=== PATIENT | male | born 1955 | race Caucasian/White ===

== ENCOUNTER 2017-02-17 03:27 | Emergency (ER) | payer MEDICARE ==
[2017-02-17] MEDS ORDERED: KETOROLAC TROMETHAMINE INJ/PF 30 MG/1 ML SDV IV ONE (04:27)
[2017-02-17] MEDS ORDERED: NORMAL SALINE 1000 ML 1,000 ML IV ONE (04:48)
--- NOTE | 2017-02-17 04:53 | ER Document Report ---
ED GI/ - General Chief Complaint: Flank Pain Stated Complaint: FLANK PAIN Time Seen by Provider: 02/17/17 04:33 Mode of Arrival: Ambulatory Information source: Patient Notes: 61-year-old male presents to ED for left flank pain that started around 1:00 this morning. States she has been nauseated with no vomiting. No diarrhea. Has a history of a kidney stone and has passed with his UA something that looks like it could be a stone. Has a history of an [place] with pacemaker defibrillator as blood pressure cholesterol thyroid and some broken bones. TRAVEL OUTSIDE OF THE [place] IN LAST 30 DAYS: No - HPI Patient complains to provider of: Flank pain - Left. No: Vomiting - Nausea no vomiting Onset: This evening Timing/Duration: Intermittent Quality of pain: Sharp Severity at maximum: Moderate Severity in ED: Moderate Pain Level: 3 Location: Left flank Associated symptoms: Nausea, Other - Left flank pain. denies: Vomiting Exacerbated by: Denies Relieved by: Denies Similar symptoms previously: Yes Recently seen / treated by doctor: No - Related Data Allergies/Adverse Reactions: No Known Drug Allergies Allergy (Mild, Verified 09/29/11 08:33) ANTIBIOTICS Allergy (Severe, Uncoded 09/29/11 09:42) adhesive gel from round ekg pads Allergy (Mild, Uncoded 08/26/11 08:17) blisters skin Past Medical History - General Information source: Patient - Social History Smoking Status: Never Smoker Cigarette use (# per day): No Chew tobacco use (# tins/day): Yes - dips a can a day Smoking Education Provided: No Frequency of alcohol use: None Drug Abuse: None Occupation: Disability Lives with: Family Family History: COPD, DM, Hyperlipidemia, Hypertension, Malignancy Patient has suicidal ideation: No Patient has homicidal ideation: No - Past Medical History Cardiac Medical History: Reports: Hx Atrial Fibrillation, Hx Coronary Artery Disease, Hx Heart Attack, Hx Hypercholesterolemia, Hx Hypertension Pulmonary Medical History: Reports: Hx Asthma EENT Medical History: Reports: None Neurological Medical History: Reports: None Endocrine Medical History: Reports: Hx Hypothyroidism Renal/ Medical History: Reports: None Malignancy Medical History: Reports None GI Medical History: Reports: None Musculoskeltal Medical History: Reports Hx Musculoskeletal Deformity, Reports Hx Musculoskeletal Trauma Skin Medical History: Reports None Psychiatric Medical History: Reports: None Traumatic Medical History: Reports: Hx Fractures Infectious Medical History: Reports: None Past Surgical History: Reports: Hx Cardiac Catheterization, Hx Cardiac Surgery - Pacer/defib, Cardiac stents, Hx Cholecystectomy, Hx Coronary Stent, Hx Orthopedic Surgery - L elbow, Hx Pacemaker - X 2 - Immunizations Hx Pneumococcal Vaccination: 07/24/11 Review of Systems - Review of Systems Constitutional: No symptoms reported EENT: No symptoms reported Cardiovascular: No symptoms reported Respiratory: No symptoms reported Gastrointestinal: Nausea. denies: Vomiting Genitourinary: Flank pain Male Genitourinary: No symptoms reported Musculoskeletal: No symptoms reported Skin: No symptoms reported Hematologic/Lymphatic: No symptoms reported Neurological/Psychological: No symptoms reported -: Yes All other systems reviewed and negative Physical Exam - Vital signs Vitals: Temp Pulse Resp BP Pulse Ox 97.6 F 62 20 151/70 H 96 02/17/17 03:28 02/17/17 03:28 02/17/17 03:28 02/17/17 03:28 02/17/17 03:28 Interpretation: Normal - General General appearance: Appears well, Alert - HEENT Head: Normocephalic, Atraumatic Eyes: Normal Pupils: PERRL - Respiratory Respiratory status: No respiratory distress Chest status: Nontender Breath sounds: Normal Chest palpation: Normal - Cardiovascular Rhythm: Regular Heart sounds: Normal auscultation Murmur: No - Abdominal Inspection: Normal Distension: No distension Bowel sounds: Normal Tenderness: Tender - left flank Organomegaly: No organomegaly - Back Back: Normal, CVA tenderness - left - Extremities General upper extremity: Normal inspection, Nontender, Normal color, Normal ROM , Normal temperature General lower extremity: Normal inspection, Nontender, Normal color, Normal ROM , Normal temperature, Normal weight bearing. No: Ariana's sign - Neurological Neuro grossly intact: Yes Cognition: Normal Orientation: AAOx4 [place] Coma Scale Eye Opening: Spontaneous Carlito Coma Scale Verbal: Oriented Carlito Coma Scale Motor: Obeys Commands Carlito Coma Scale Total: 15 Speech: Normal Motor strength normal: LUE, RUE, LLE, RLE Sensory: Normal - Psychological Associated symptoms: Normal affect, Normal mood - Skin Skin Temperature: Warm Skin Moisture: Dry Skin Color: Normal Course - Re-evaluation Re-evalutation: 02/17/17 06:22 CT showed moderate splenomegaly, a 0.4 cm right lower lobe pulmonary nodule, also showed a left nephrolithiasis measuring up to 0.5 cm each. These were all discussed with the patient and written report of the CT given to patient. Patient will be discharged home to follow-up with his primary doctor. He was instructed to please call his doctor today and discussed these over the phone and schedule a follow-up visit. - Vital Signs Vital signs: Temp Pulse Resp BP Pulse Ox 97.6 F 62 20 138/69 H 98 02/17/17 03:28 02/17/17 03:28 02/17/17 03:28 02/17/17 05:31 02/17/17 05:30 - Laboratory Result Diagrams: 02/17/17 04:44 02/17/17 04:44 Laboratory results interpreted by me: 02/17/17 02/17/17 02/17/17 04:44 04:44 04:44 RBC 4.33 L MCV 98 H MCH 34.2 H Plt Count 125 L Carbon Dioxide 21 L Glucose 125 H Urine Blood LARGE H - Diagnostic Test Radiology reviewed: Image reviewed, Reports reviewed Discharge - Discharge Clinical Impression: Kidney stone, right lower lobe pulmonary nodule, Splenomegaly Condition: Stable Disposition: HOME, SELF-CARE Additional Instructions: Flank Pain We weren't able to prove an exact cause for your flank pain. Pain in the flank can be caused by a muscle strain or spasm. Sometimes a kidney stone causes pain, but can't be found on our tests. Infection in the kidney should be evident on a urine test. Early shingles can occasionally cause flank pain, without the rash that proves the diagnosis. On rare occasions, disease of the pancreas, aorta, spleen, or colon can create pain in the flank. At this time, there's no evidence of a dangerous condition, and it seems safe for you to be at home. If the pain goes away and does not come back, no further testing will be needed. If pain persists, or becomes more severe, we may need to repeat some tests or order additional new testing. Blood in the urine, urgency to urinate frequently, and pain that radiates to the groin can indicate a kidney stone. Fever may mean that the pain is due to infection, either of the kidney or the colon (diverticulitis). If your pain is early shingles, you should develop an eruption of blisters in the painful area within a few days. Call the doctor or return if you have pain that is spreading or becoming more severe, pain that does not resolve with time, fever, or any other new symptoms. Intravenous (IV) Fluids As part of your care today, you received intravenous (IV) fluids. IV fluids are administered to patients who are dehydrated or to those who have certain chemical (electrolyte) abnormalities that need correcting. Toradol Injection You have been given an injection of ketorolac tromethamine (Toradol). This is an excellent, safe drug for pain control. It also has potent antiinflammatory action. You should have significant pain relief within about one hour. Toradol is not addicting and is non-sedating. It does not interfere with driving or work. Call or return if you develop itching, hives, shortness of breath, or rash. FOLLOW-UP CARE: If you have been referred to a physician for follow-up care, call the physician s office for an appointment as you were instructed or within the next two days. If you experience worsening or a significant change in your symptoms, notify the physician immediately or return to the Emergency Department at any time for re-evaluation. Forms: Elevated Blood Pressure
[2017-02-17 05:08] LABS: ABSOLUTE EOSINOPHILS # (AUTO) 0.1 10^3/uL (0.0-0.6); ABSOLUTE LYMPHOCYTES (AUTO) 1.7 10^3/uL (0.5-4.7); ABSOLUTE MONOCYTES (AUTO) 0.8 10^3/uL (0.1-1.4); ABSOLUTE NEUT (AUTO) 4.1 10^3/uL (1.7-8.2); APPEARANCE,URINE CLEAR; BASOPHILS % (AUTO) 0.4 % (0-2); BILIRUBIN,URINE NEGATIVE (NEGATIVE); EOSINOPHILS % (AUTO) 1.3 % (0-6); GLUCOSE, URINE NEGATIVE (NEGATIVE); HEMATOCRIT 42.6 % (37.9-51.0); HEMOGLOBIN 14.8 g/dL (13.5-17.0); HGB HCT DIFFERENCE 1.8; KETONES,URINE NEGATIVE (NEGATIVE); LEUKOCYTE ESTERASE,URINE NEGATIVE (NEGATIVE); LYMPHOCYTES % (AUTO) 25.6 % (13-45); MEAN CORPUSCULAR HEMOGLOBIN 34.2 pg (27.0-33.4); MEAN CORPUSCULAR HGB CONC 34.8 g/dL (32.0-36.0); MEAN CORPUSCULAR VOLUME 98 fl (80-97); MONOCYTES % (AUTO) 12.1 % (3-13); NITRITE,URINE NEGATIVE (NEGATIVE); PROTEIN,URINE NEGATIVE (NEGATIVE); RED BLOOD COUNT 4.33 10^6/uL (4.35-5.55); RED CELL DISTRIBUTION WIDTH 13.2 % (11.5-14.0); SEGMENTED NEUTROPHILS % (AUTO) 60.6 % (42-78); URINE SPECIFIC GRAVITY 1.004; UROBILINOGEN,URINE NEGATIVE mg/dL (<2.0); WHITE BLOOD COUNT 6.7 10^3/uL (4.0-10.5)
[2017-02-17 05:37] LABS: ALANINE AMINOTRANSFERASE 59 U/L (21-72); ALBUMIN 4.8 g/dL (3.5-5.0); ALKALINE PHOSPHATASE 117 U/L (38-126); ANION GAP 14 (5-19); ASPARTATE AMINO TRANSFERASE 40 U/L (17-59); BILIRUBIN,DIRECT 0.4 mg/dL (0.0-0.4); BLOOD UREA NITROGEN 20 mg/dL (7-20); CALCIUM 9.7 mg/dL (8.4-10.2); CARBON DIOXIDE 21 mmol/L (22-30); CHLORIDE 106 mmol/L (98-107); CREATININE RESULT 0.99 mg/dL (0.52-1.25); GLUCOSE 125 mg/dL (75-110); LIPASE 142.2 U/L (23-300); POTASSIUM 4.4 mmol/L (3.6-5.0); SODIUM 140.8 mmol/L (137-145); TOTAL PROTEIN 8.2 g/dL (6.3-8.2)
--- NOTE | 2017-02-17 05:56 | RADIOLOGY REPORT (SQ) ---
EXAM DESCRIPTION: CT LTD RENAL STONE PROTOCOL ON COMPLETED DATE/TIME: 02/17/2017 5:39 am REASON FOR STUDY: left flank pain COMPARISON: None. TECHNIQUE: CT scan of the abdomen and pelvis performed without intravenous or oral contrast. Images reviewed with lung, soft tissue, and bone windows. Reconstructed coronal and sagittal MPR images revi ewed. All images stored on PACS. All CT scanners at this facility use dose modulation, iterative reconstruction, and/or weight based d osing when appropriate to reduce radiation dose to as low as reasonably achievable (ALARA). [facility]: Dose Right [facility]: CareDose [facility]: Dose Right [facility]: Teradose 4D [facility]: [employer] RADIATION DOSE: Up-to-date CT equipment and radiation dose reduction techniques were employed. CTDIv ol: 29.3 mGy. DLP: 1708 mGy-cm.mGy. LIMITATIONS: None. FINDINGS: LOWER CHEST: Small atelectasis or scar of bilateral lung bases. 0.4 cm likely benign pulm onary nodule of the right lower lobe peripherally. Coronary arterial calcification. NON-CONTRASTED LIVER, SPLEEN, ADRENALS: Evaluation limited by lack of IV contrast. No identified sign ificant masses. Moderate splenomegaly. PANCREAS: No masses. No peripancreatic inflammatory changes. GALLBLADDER: Surgically absent. RIGHT KIDNEY AND URETER: No suspicious masses. Assessment limited by lack of IV contrast. No signif icant calcifications. No hydronephrosis or hydroureter. LEFT KIDNEY AND URETER: No suspicious masses. Assessment limited by lack of IV contrast. Nephrolith iasis measures up to 0.5 cm each. No hydronephrosis or hydroureter. AORTA AND RETROPERITONEUM: No aneurysm. No retroperitoneal masses or adenopathy. Atherosclerosis inc ludes mild stenosis of the right femoral artery. BOWEL AND PERITONEAL CAVITY: No obvious masses or inflammatory changes. No free fluid. APPENDIX: Normal. PELVIS, BLADDER, AND ABDOMINAL WALL:No abnormal masses. No free fluid. Bladder normal. BONES: No significant findings. OTHER: Cardiac stimulation device and leads. IMPRESSION: 1. Moderate splenomegaly. 2. Left nephrolithiasis measuring up to 0.5 cm each. 3. A 0.4 cm right lower lobar pulmonary nodule. COMMENT: F[place]CHNER CRITERIA FOR FOLLOW-UP OF PULMONARY NODULES Incidentally detected new nodules in persons 35 or older. HIGH RISK: History of smoking or other known risk factors. <6mm single solid nodule: LOW RISK: no routine followup. HIGH RISK: optional CT 12 mo. TECHNICAL DOCUMENTATION: JOB ID: [id number] Quality ID # [id number]: Final reports with documentation of one or more dose reduction techniques (e.g., Au tomated exposure control, adjustment of the mA and/or kV according to patient size, use of iterative reconstruction technique) 2010 [employer]- All Rights Reserved
[2017-02-17 06:26] VITALS: BP 136/72
== END 2017-02-17 06:20 | disposition home or self-care (01) ==
LOC: ER 03:27
DX: N20.0 Calculus of kidney (principal); R16.1 Splenomegaly, not elsewhere classified; R91.1 Solitary pulmonary nodule; R11.0 Nausea; J45.909 Unspecified asthma, uncomplicated; I25.10 Atherosclerotic heart disease of native coronary artery without angina pectoris; I10 Essential (primary) hypertension; I25.2 Old myocardial infarction; I48.91 Unspecified atrial fibrillation; Z95.810 Presence of automatic (implantable) cardiac defibrillator; Z88.1 Allergy status to other antibiotic agents; Z91.048 Other nonmedicinal substance allergy status; Z76.0 Encounter for issue of repeat prescription; Z98.61 Coronary angioplasty status
CPT/HCPCS: 99284; 96374; 36415; 83690; 85025; 80053; 81001; 88162; 76380; J1885

== ENCOUNTER → 2018-05-07 | Outpatient (CLI) | payer MEDICARE ==
--- NOTE | 2018-05-07 11:51 | RADIOLOGY REPORT (SQ) ---
EXAM DESCRIPTION: CT CHEST WITHOUT COMPLETED DATE/TIME: 05/07/2018 10:10 am REASON FOR STUDY: SOLITARY PULMONARY NODULE R91.1 SOLITARY PULMONARY NODULE COMPARISON: None. TECHNIQUE: CT scan performed of the chest without intravenous contrast. Images reviewed with lung, soft tissue and bone windows. Reconstructed coronal and sagittal MPR images reviewed. All images st ored on PACS. All CT scanners at this facility use dose modulation, iterative reconstruction, and/or weight based d osing when appropriate to reduce radiation dose to as low as reasonably achievable (ALARA). [facility]: Dose Right [facility]: CareDose [facility]: Dose Right [facility]: Teradose 4D [facility]: [employer] RADIATION DOSE: CT Rad equipment meets quality standard of care and radiation dose reduction techniq ues were employed. CTDIvol: 17.9 mGy. DLP: 723 mGy-cm. mGy. LIMITATIONS: No technical limitations. FINDINGS: LUNGS AND PLEURA: A focal 7-8 mm ground-glass nodular opacity in the right upper lobe, ax ial image 29, series 4. Pleural based 5 mm nodule right lower lobe, axial image 85, series. Linear slight scarring or atelectasis in the mid and lower lobes. No pneumothorax or pleural effusion. The central airways are clear. HILAR AND MEDIASTINAL STRUCTURES: No identified masses or abnormal nodes. No obvious aneurysm. HEART AND VASCULAR STRUCTURES: Mild atherosclerotic changes involving the thoracic aorta. No aneury sm. No pericardial effusion. UPPER ABDOMEN: Slightly nodular contour to the liver, raising the question of possible cirrhosis. H epatosplenomegaly is suggested. Prior cholecystectomy. Hepatosplenomegaly is suggested. Limited ex am. THYROID AND OTHER SOFT TISSUES: No masses. No adenopathy. BONES: No significant finding. HARDWARE: Cardiac pacemaker. OTHER: No other significant findings. IMPRESSION: 1. A right upper lobe ground-glass nodular opacity and pleural based solid nodule right lower lobe. A follow-up noncontrast CT chest examination in three months. 2. Slight nodular contour to the liver, raising question of possible cirrhosis. Hepatosplenomegaly is suggested. TECHNICAL DOCUMENTATION: JOB ID: [id number] Quality ID # [id number]: Final reports with documentation of one or more dose reduction techniques (e.g., Au tomated exposure control, adjustment of the mA and/or kV according to patient size, use of iterative reconstruction technique) 2010 [employer]- All Rights Reserved Reading location - IP/workstation name: [email or web address]
== END ==
LOC: RAD 09:57
PROVIDERS: ATTEND Internal Medicine
DX: R91.1 Solitary pulmonary nodule (principal)
CPT/HCPCS: 71250

== ENCOUNTER 2018-09-18 00:11 | Emergency (ER) | payer MEDICARE ==
[2018-09-18] MEDS ORDERED: METHYLPREDNISOLONE INJ 125 MG/2 ML SDV ONE (00:17)
[2018-09-18] MEDS ORDERED: IPRATROPIUM/ALBUTEROL 0.5-2.5 MG/3 ML AMPUL NEB ONE ×2 (00:17→00:22)
[2018-09-18] MEDS ORDERED: ASPIRIN 300 MG SUPP, RECTAL PR ONE (00:22)
[2018-09-18] MEDS ORDERED: METHYLPREDNISOLONE INJ 125 MG/2 ML SDV IV ONE (00:22)
--- NOTE | 2018-09-18 00:23 | ER Document Report ---
ED Respiratory Problem - General Stated Complaint: TROUBLE BREATHING Time Seen by Provider: 09/18/18 00:21 Notes: 62-year-old male to the emergency department via EMS for evaluation of respiratory distress. Patient called EMS when he was having difficulty breathing. States he was having to use his inhaler several times today. Began feeling like he could not breathe. EMS arrived and found patient on the floor. Patient was perspiring and tachypneic. Initial oxygen saturation was 60%. Patient placed on CPAP. Blood pressure was high so started on Nitropaste. Versed given IV by EMS. Patient seen immediately on arrival. Patient was pale and diaphoretic and in respiratory distress. Immediately gave patient Solu- Medrol and placed on BiPAP. TRAVEL OUTSIDE OF THE [place] IN LAST 30 DAYS: No - HPI Patient complains to provider of: Chest pain, Short of breath Onset: Just prior to arrival Duration: Worse/persistent Severity: Severe Pain Level: 2 Short of Breath: Severe Chest pain/discomfort: Center - Related Data Allergies/Adverse Reactions: No Known Drug Allergies Allergy (Mild, Verified 09/29/11 08:33) adhesive gel from round ekg pads Allergy (Mild, Uncoded 08/26/11 08:17) blisters skin Past Medical History - General Information source: Patient, Relative - If Cannot obtain history due to: Unstable vital signs - Social History Smoking Status: Never Smoker Frequency of alcohol use: None Drug Abuse: None Lives with: Spouse/Significant other Family History: COPD, DM, Hyperlipidemia, Hypertension, Malignancy - Past Medical History Cardiac Medical History: Reports: Hx Atrial Fibrillation, Hx Coronary Artery Disease, Hx Heart Attack, Hx Hypercholesterolemia, Hx Hypertension Pulmonary Medical History: Reports: Hx Asthma Neurological Medical History: Denies: Hx Cerebrovascular Accident, Hx Seizures Endocrine Medical History: Reports: Hx Hypothyroidism Renal/ Medical History: Denies: Hx Peritoneal Dialysis GI Medical History: Denies: Hx Hepatitis, Hx Hiatal Hernia, Hx Ulcer Musculoskeletal Medical History: Reports Hx Musculoskeletal Deformity, Reports Hx Musculoskeletal Trauma Traumatic Medical History: Reports: Hx Fractures Infectious Medical History: Denies: Hx Hepatitis Past Surgical History: Reports: Hx Cardiac Catheterization, Hx Cardiac Surgery - Pacer/defib, Cardiac stents, Hx Cholecystectomy, Hx Coronary Stent, Hx Orthopedic Surgery - L elbow, Hx Pacemaker - X 2. Denies: Hx Open Heart Surgery - Immunizations Hx Pneumococcal Vaccination: 07/24/11 Review of Systems - Review of Systems -: Yes ROS unobtainable due to patient's medical condition - Of your respiratory distress, BiPAP Physical Exam - Vital signs Vitals: Resp Pulse Ox 34 H 94 09/18/18 00:16 09/18/18 00:16 Interpretation: Tachycardic, Hypoxic, Tachypneic - General General appearance: Alert. No: Appears well In distress: Severe - HEENT Head: Normocephalic, Atraumatic Eyes: Normal Pupils: PERRL - Respiratory Respiratory status: Cyanosis, Labored, Tachypnea Chest status: Nontender Breath sounds: Decreased air movement Chest palpation: Normal - Cardiovascular Rhythm: Tachycardia Heart sounds: Normal auscultation Murmur: No - Abdominal Inspection: Normal Distension: No distension Bowel sounds: Normal Tenderness: Nontender Organomegaly: No organomegaly - Back Back: Normal, Nontender - Extremities General upper extremity: Normal inspection, Nontender, Normal color, Normal ROM, Normal temperature General lower extremity: Normal inspection, Nontender, Normal color, Normal ROM, Normal temperature. No: Edema, Ariana's sign - Neurological Neuro grossly intact: Yes Cognition: Normal Orientation: AAOx4 [place] Coma Scale Eye Opening: Spontaneous [place] Coma Scale Verbal: Oriented [place] Coma Scale Motor: Obeys Commands [place] Coma Scale Total: 15 Speech: Normal Motor strength normal: LUE, RUE, LLE, RLE Sensory: Normal - Psychological Associated symptoms: Normal affect, Normal mood - Skin Skin Temperature: Warm Skin Moisture: Dry Skin Color: Normal Course - Re-evaluation Re-evalutation: 09/18/18 01:29 Patient was very troubling presentation and respiratory distress. Stat bedside valuation performed. Patient began to respond quite well to BiPAP. Breathing treatment was given. Steroids given blood pressure was reportedly high by EMS. Once patient became more comfortable on the BiPAP his blood pressure began to p lummet. Chest x-ray was concerning for some pulmonary edema versus pneumonia. Patient does have a low-grade fever as well as a white blood cell count so the possibility of sepsis is high on the differential. He has a slightly elevated troponin but based on this lactate of over 5 and is reported hypoxia not surprising that he did have a mild elevated troponin in the setting of his underlying coronary artery disease. Patient does appear to have a left bundle branch block on EKG but a prior EKG shows that this is more likely old. I am giving him aspirin I will start him on a heparin drip at this time to protect him from PE/DVT potential as well as treating his acute coronary syndrome with that is was going on at this time. We can always stop the heparin later and reverse that it needed. I am concerned that he could potentially have a PE as well so I am going to get a angiogram of his chest. Will start him on antibiotics as well. 09/18/18 02:50 CT scan does not reveal any pulmonary embolism but does have some pulmonary edema and possible infiltrates. Continuing with the antibiotic treatment. Continuing with the heparin drip. Blood pressure continues to drop so I am concerned that he may be septic versus cardiogenic shock. Did discuss the case with the firearms inspector here and he recommends transferring to higher level of care. Will attempt to contact [facility] as well as other acceptable facilities at this time. 09/18/18 03:36 Troponin is elevated to over 1. Lactate coming down. Patient has been accepted at [facility] in [place], Dr. Jones accepting. Anticipate immediate transfer. 09/18/18 03:38 Laboratory 09/18/18 09/18/18 09/18/18 00:20 00:20 00:20 WBC 14.1 H RBC 4.81 Hgb 16.4 Hct 48.0 MCV 100 H MCH 34.1 H MCHC 34.1 RDW 14.3 H Plt Count 224 Seg Neutrophils % 39.0 L Lymphocytes % 48.7 H Monocytes % 8.4 Eosinophils % 3.2 Basophils % 0.7 Absolute Neutrophils 5.5 Absolute Lymphocytes 6.8 H Absolute Monocytes 1.2 Absolute Eosinophils 0.5 Absolute Basophils 0.1 PT INR APTT Carbonic Acid HCO3/H2CO3 Ratio ABG pH ABG pCO2 ABG pO2 ABG HCO3 ABG Total CO2 ABG O2 Saturation ABG Base Excess FiO2 Sodium 140.4 Potassium 4.4 Chloride 103 Carbon Dioxide 19 L Anion Gap 18 BUN 16 Creatinine 1.24 Est GFR ( Amer) > 60 Est GFR (Non-Af Amer) 59 L Glucose 197 H Lactic Acid Calcium 9.6 Total Bilirubin 0.6 Direct Bilirubin 0.2 Neonat Total Bilirubin Not Reportable Neonat Direct Bilirubin Not Reportable Neonat Indirect Bili Not Reportable AST 41 ALT 45 Alkaline Phosphatase 105 Creatine Kinase 156 CK-MB (CK-2) 2.04 Troponin I 0.064 NT-Pro-B Natriuret Pep 487 Total Protein 8.1 Albumin 4.8 Urine Color Urine Appearance Urine pH Ur Specific [place] Urine Protein Urine Glucose (UA) Urine Ketones Urine Blood Urine Nitrite Urine Bilirubin Urine Urobilinogen Ur Leukocyte Esterase Urine WBC (Auto) Urine RBC (Auto) U Hyaline Cast (Auto) Squamous Epi Cells Auto Urine Mucus (Auto) Urine Ascorbic Acid 09/18/18 09/18/18 09/18/18 00:20 00:20 00:20 WBC RBC Hgb Hct MCV MCH MCHC RDW Plt Count Seg Neutrophils % Lymphocytes % Monocytes % Eosinophils % Basophils % Absolute Neutrophils Absolute Lymphocytes Absolute Monocytes Absolute Eosinophils Absolute Basophils PT 14.9 INR 1.11 APTT 25.3 Carbonic Acid 1.69 H HCO3/H2CO3 Ratio 12:1 ABG pH 7.19 L* ABG pCO2 56.0 H ABG pO2 86.5 ABG HCO3 21.1 ABG Total CO2 22.8 L ABG O2 Saturation 94.2 ABG Base Excess -7.9 FiO2 10% Sodium Potassium Chloride Carbon Dioxide Anion Gap BUN Creatinine Est GFR ( Amer) Est GFR (Non-Af Amer) Glucose Lactic Acid 5.8 H Calcium Total Bilirubin Direct Bilirubin Neonat Total Bilirubin Neonat Direct Bilirubin Neonat Indirect Bili AST ALT Alkaline Phosphatase Creatine Kinase CK-MB (CK-2) Troponin I NT-Pro-B Natriuret Pep Total Protein Albumin Urine Color Urine Appearance Urine pH Ur Specific [place] Urine Protein Urine Glucose (UA) Urine Ketones Urine Blood Urine Nitrite Urine Bilirubin Urine Urobilinogen Ur Leukocyte Esterase Urine WBC (Auto) Urine RBC (Auto) U Hyaline Cast (Auto) Squamous Epi Cells Auto Urine Mucus (Auto) Urine Ascorbic Acid 09/18/18 09/18/18 09/18/18 00:54 02:43 02:43 WBC RBC Hgb Hct MCV MCH MCHC RDW Plt Count Seg Neutrophils % Lymphocytes % Monocytes % Eosinophils % Basophils % Absolute Neutrophils Absolute Lymphocytes Absolute Monocytes Absolute Eosinophils Absolute Basophils PT INR APTT Carbonic Acid HCO3/H2CO3 Ratio ABG pH ABG pCO2 ABG pO2 ABG HCO3 ABG Total CO2 ABG O2 Saturation ABG Base Excess FiO2 Sodium Potassium Chloride Carbon Dioxide Anion Gap BUN Creatinine Est GFR ( Amer) Est GFR (Non-Af Amer) Glucose Lactic Acid 2.6 H Calcium Total Bilirubin Direct Bilirubin Neonat Total Bilirubin Neonat Direct Bilirubin Neonat Indirect Bili AST ALT Alkaline Phosphatase Creatine Kinase CK-MB (CK-2) Troponin I 1.160 NT-Pro-B Natriuret Pep Total Protein Albumin Urine Color YELLOW Urine Appearance CLOUDY Urine pH 6.0 Ur Specific [place] 1.017 Urine Protein >=500 H Urine Glucose (UA) 150 H Urine Ketones NEGATIVE Urine Blood SMALL H Urine Nitrite NEGATIVE Urine Bilirubin NEGATIVE Urine Urobilinogen NEGATIVE Ur Leukocyte Esterase NEGATIVE Urine WBC (Auto) 9 Urine RBC (Auto) 7 U Hyaline Cast (Auto) 6 Squamous Epi Cells Auto 1 Urine Mucus (Auto) RARE Urine Ascorbic Acid NEGATIVE - Vital Signs Vital signs: Temp Pulse Resp BP Pulse Ox 18 86/67 L 96 09/18/18 03:21 09/18/18 03:21 09/18/18 03:21 - Laboratory Result Diagrams: 09/18/18 00:20 09/18/18 00:20 Laboratory results interpreted by me: 09/18/18 09/18/18 09/18/18 00:20 00:20 00:20 WBC 14.1 H MCV 100 H MCH 34.1 H RDW 14.3 H Seg Neutrophils % 39.0 L Lymphocytes % 48.7 H Absolute Lymphocytes 6.8 H Carbonic Acid 1.69 H ABG pH 7.19 L* ABG pCO2 56.0 H ABG Total CO2 22.8 L Carbon Dioxide 19 L Est GFR (Non-Af Amer) 59 L Glucose 197 H Lactic Acid Urine Protein Urine Glucose (UA) Urine Blood 09/18/18 09/18/18 09/18/18 00:20 00:54 02:43 WBC MCV MCH RDW Seg Neutrophils % Lymphocytes % Absolute Lymphocytes Carbonic Acid ABG pH ABG pCO2 ABG Total CO2 Carbon Dioxide Est GFR (Non-Af Amer) Glucose Lactic Acid 5.8 H 2.6 H Urine Protein >=500 H Urine Glucose (UA) 150 H Urine Blood SMALL H - EKG Interpretation by Me Rate: Tachycardia Additional EKG results interpreted by me: 09/18/18 02:51 Left axis deviation, left bundle branch block, ST segment depression in V4, V5, V6 with T wave inversion, Critical Care Note - Critical Care Note Total time excluding time spent on procedures (mins): 75 Comments: Hypoxia, hypotension, respiratory distress, respiratory failure, acidosis Discharge - Discharge Clinical Impression: Acute coronary syndrome Respiratory failure Qualifiers: Chronicity: acute Respiratory failure complication: hypoxia and hypercapnia Qualified Code(s): J96.01 - Acute respiratory failure with hypoxia; J96.02 - Acute respiratory failure with hypercapnia Pneumonia Qualifiers: Pneumonia type: due to unspecified organism Laterality: bilateral Lung location: unspecified part of lung Qualified Code(s): J18.9 - Pneumonia, unspecified organism Condition: Poor Disposition: [facility]
[2018-09-18] MEDS ORDERED: MORPHINE SULFATE 10 MG/ML INJ IV ONE (00:28)
[2018-09-18] MEDS ORDERED: ONDANSETRON HCL INJ/PF 4 MG/2 ML SDV IV ONE (00:28)
[2018-09-18 00:35] LABS: ABSOLUTE BASOPHILS # (AUTO) 0.1 10^3/uL (0.0-0.2); ABSOLUTE EOSINOPHILS # (AUTO) 0.5 10^3/uL (0.0-0.6); ABSOLUTE LYMPHOCYTES (AUTO) 6.8 10^3/uL (0.5-4.7); ABSOLUTE MONOCYTES (AUTO) 1.2 10^3/uL (0.1-1.4); ABSOLUTE NEUT (AUTO) 5.5 10^3/uL (1.7-8.2); BASOPHILS % (AUTO) 0.7 % (0-2); EOSINOPHILS % (AUTO) 3.2 % (0-6); HEMOGLOBIN 16.4 g/dL (13.5-17.0); LYMPHOCYTES % (AUTO) 48.7 % (13-45); MEAN CORPUSCULAR HEMOGLOBIN 34.1 pg (27.0-33.4); MEAN CORPUSCULAR HGB CONC 34.1 g/dL (32.0-36.0); MEAN CORPUSCULAR VOLUME 100 fl (80-97); MONOCYTES % (AUTO) 8.4 % (3-13); PLATELET COUNT 224 10^3/uL (150-450); RED BLOOD COUNT 4.81 10^6/uL (4.35-5.55); RED CELL DISTRIBUTION WIDTH 14.3 % (11.5-14.0); TOTAL CELLS COUNTED % (AUTO) 100 %; WHITE BLOOD COUNT 14.1 10^3/uL (4.0-10.5)
[2018-09-18 00:36] LABS: ARTERIAL BLOOD BASE EXCESS -7.9 mmol/L; ARTERIAL BLOOD H2CO3 1.69 mmol/L (1.05-1.35); ARTERIAL BLOOD HCO3 21.1 mmol/L (20-24); ARTERIAL BLOOD O2 SATURATION 94.2 % (94-98); ARTERIAL BLOOD PO2 86.5 mmHg (80-100); ARTERIAL BLOOD TOTAL CO2 22.8 mmol/L (23-27)
[2018-09-18 00:37] LABS: ARTERIAL BLOOD FIO2 10%
[2018-09-18 00:40] LABS: ARTERIAL BLOOD PH 7.19 (7.35-7.45)
[2018-09-18 00:44] LABS: INTERNATIONAL RATION (INR) 1.11; PROTHROMBIN TIME 14.9 SEC (11.4-15.4)
[2018-09-18 00:45] LABS: PARTIAL THROMBOPLASTIN TIME 25.3 SEC (23.5-35.8)
--- NOTE | 2018-09-18 00:47 | RADIOLOGY REPORT (SQ) ---
EXAM DESCRIPTION: XR CHEST 1 VIEW COMPLETED DATE/TME: 09/18/2018 00:13 CLINICAL HISTORY: 62 years, Male, respiratory distress COMPARISON: None. NUMBER OF VIEWS: One TECHNIQUE: AP view of the chest LIMITATIONS: None. FINDINGS: There is diffuse airspace disease. The heart is normal in size with a left chest wall AICD in place. There is no pneumothorax or pleural effusion. There is no acute fracture. IMPRESSION: Diffuse airspace disease, likely representing pulmonary edema and/or pneumonia. copyright 2010 [employer]- All Rights Reserved
[2018-09-18 00:52] LABS: ALANINE AMINOTRANSFERASE 45 U/L (21-72); ALBUMIN 4.8 g/dL (3.5-5.0); ALKALINE PHOSPHATASE 105 U/L (38-126); ASPARTATE AMINO TRANSFERASE 41 U/L (17-59); BILIRUBIN,DIRECT 0.2 mg/dL (0.0-0.4); BILIRUBIN,TOTAL 0.6 mg/dL (0.2-1.3); BLOOD UREA NITROGEN 16 mg/dL (7-20); CALCIUM 9.6 mg/dL (8.4-10.2); CREATINE KINASE 156 U/L (55-170); GLUCOSE 197 mg/dL (75-110); POTASSIUM 4.4 mmol/L (3.6-5.0); TOTAL PROTEIN 8.1 g/dL (6.3-8.2)
[2018-09-18 01:01] LABS: ANION GAP 18 (5-19); CHLORIDE 103 mmol/L (98-107); SODIUM 140.4 mmol/L (137-145)
[2018-09-18 01:03] LABS: CREATINE KINASE MB 2.04 ng/mL (<4.55)
[2018-09-18] MEDS ORDERED: ASPIRIN 81 MG TABLET, CHEWABLE PO ONE (01:03)
[2018-09-18] MEDS ORDERED: ASPIRIN 81 MG TABLET, CHEWABLE ONE (01:03)
[2018-09-18 01:04] LABS: CARBON DIOXIDE 19 mmol/L (22-30)
[2018-09-18 01:11] LABS: APPEARANCE,URINE CLOUDY; BILIRUBIN,URINE NEGATIVE (NEGATIVE); COLOR,URINE YELLOW; GLUCOSE, URINE 150 mg/dL (NEGATIVE); KETONES,URINE NEGATIVE (NEGATIVE); LEUKOCYTE ESTERASE,URINE NEGATIVE (NEGATIVE); NITRITE,URINE NEGATIVE (NEGATIVE); PROTEIN,URINE >=500 mg/dL (NEGATIVE); URINE SPECIFIC GRAVITY 1.017; UROBILINOGEN,URINE NEGATIVE mg/dL (<2.0)
[2018-09-18] MEDS ORDERED: CEFTRIAXONE INJ 1000 MG VIAL IV ONE (01:21)
[2018-09-18] MEDS ORDERED: HEPARIN SODIUM,PORCINE/D5W 25,000 UNIT/250 ML RTUINJ IV PRN (01:21)
[2018-09-18] MEDS ORDERED: HEPARIN SOD (PORCINE) 1,000 UNIT/ML 10 ML VIAL IV ONE (01:21)
[2018-09-18] MEDS ORDERED: AZITHROMYCIN INJ 500 MG VIAL IV ONE (01:22)
[2018-09-18] MEDS ORDERED: NORMAL SALINE 500 ML IV ONE (01:23)
[2018-09-18] MEDS ORDERED: NORMAL SALINE 1000 ML 1,000 ML IV ONE (01:25)
--- NOTE | 2018-09-18 02:24 | RADIOLOGY REPORT (SQ) ---
EXAM DESCRIPTION: CT CHEST ANGIOGRAPHY WITHOUT THEN WITH IV CONTRAST COMPLETED DATE/TME: 09/18/2018 01:21 CLINICAL HISTORY: 62 years, Male, cp, sob COMPARISON: None. TECHNIQUE: Axial CT images of the chest were obtained after the administration of IV contrast. MPR and MIP reconstructions were performed. DLP 1809 Images stored on PACS. All CT scanners at this facility use dose modulation, iterative reconstruction, and/or weight based dosing when appropriate to reduce radiation dose to as low as reasonably achievable (ALARA). [facility]: Dose Right [facility]: CareDose [facility]: Dose Right [facility]: Teradose 4D [facility]: [employer] LIMITATIONS: None. FINDINGS: Upper abdomen: Partially imaged. The liver appears cirrhotic. Cholecystectomy. Thoracic aorta: Atherosclerotic calcifications Heart: No right atrial thrombus. Atherosclerotic calcifications of the coronary arteries. There is a left chest wall pacemaker/AICD in place. RV/LV ratio: Within normal limits. Pulmonary arteries: Technical: Adequate opacification to the level of the segmental vessels. Pulmonary embolus: No low-density filling defect to suggest acute PE. Overall embolic burden: None. Mediastinum: No pathologic sized middle mediastinal lymphadenopathy. Tracheobronchial tree: Unremarkable. Lungs: Lobar consolidation: There is interstitial thickening with groundglass opacities. The previously described 8 mm groundglass nodule within the right upper lobe (axial image 30) appears more apparent compared to the prior exam. The previously described 5 mm subpleural nodule within the right lower lobe is again noted (axial image 84). Pleural effusion: Negative. Pneumothorax: Negative. Other: Negative. Bones: Unremarkable. IMPRESSION: No CT evidence of acute PE. Development of diffuse groundglass opacities with interstitial thickening, likely representing pulmonary edema and/or pneumonia. The previously described 8 mm nodule within the right upper lobe appears more apparent compared to the prior exam. The subpleural right lower lobe nodule is grossly unchanged compared to the prior. Recommend repeat CT at 3, 9, and 24 months; PET-CT; or biopsy. Cirrhotic appearing liver. TECHNICAL DOCUMENTATION: Quality ID # [id number]: Final reports with documentation of one or more dose reduction techniques (e.g., Automated exposure control, adjustment of the mA and/or kV according to patient size, use of iterative reconstruction technique) copyright 2011 [email or web address]- All Rights Reserved
[2018-09-18 03:28] LABS: TROPONIN I 0.064 ng/mL
[2018-09-18 04:18] VITALS: BP 106/72
[2018-09-18] MEDS ORDERED: HEPARIN SOD (PORCINE) 1,000 UNIT/ML 10 ML VIAL IV PRN (04:22)
--- NOTE | 2018-09-19 10:17 | EKG REPORT ---
SEVERITY:- ABNORMAL ECG - SINUS RHYTHM NONSPECIFIC INTRAVENTRICULAR CONDUCTION DELAY INFERIOR INFARCT, AGE INDETERMINATE : Confirmed by: Sly Stokes 19-Sep-2018 10:16:52
--- NOTE | 2018-09-19 10:17 | EKG REPORT ---
SEVERITY:- ABNORMAL ECG - SINUS TACHYCARDIA LEFT BUNDLE BRANCH BLOCK PROBABLE INFERIOR INFARCT WITH LBBB : Confirmed by: Sly Stokes 19-Sep-2018 10:16:58
== END 2018-09-18 05:25 | disposition short-term general hospital (02) ==
LOC: ER 00:11
DX: I24.9 Acute ischemic heart disease, unspecified (principal); J96.01 Acute respiratory failure with hypoxia; J96.02 Acute respiratory failure with hypercapnia; J18.9 Pneumonia, unspecified organism; R07.9 Chest pain, unspecified; I25.10 Atherosclerotic heart disease of native coronary artery without angina pectoris; I10 Essential (primary) hypertension; J45.909 Unspecified asthma, uncomplicated
CPT/HCPCS: 93005; 36415; 87040; 82553; 82803; 82550; 85025; 85610; 85730; 80053; 81001; 84484; 83605; 83880; 71045; 71275; 93010; 94660; J1644 ×2; A9270 ×2; J2930; J0696; J2405; J7030; J0456; J7620